=== PATIENT | female | born 1965 | race Caucasian/White ===

== ENCOUNTER 2016-08-06 01:41 | Observation (INO) | payer SELFPAY ==
[2016-08-06] VITALS (12 sets, daily range): BP systolic 130–212; BP diastolic 74–131; PULSE 61–98; RESP 16–24; TEMP 98–98.3; O2SAT 95–100
[~2016-08-06] VITALS: Ht 157.5 cm; Wt 70.0 kg
[2016-08-06] MEDS ORDERED: ASPIRIN 81 MG CHEW TAB PO ONE (02:15)
[2016-08-06] MEDS ORDERED: SODIUM CHLORIDE 0.9% FLUSH 5 ML FLUSH IVF PRN ×2 (02:15→03:15)
[2016-08-06] MEDS ORDERED: NITROGLYCERIN 2% OINT 1 GM PACKET TOP ONE (02:15)
[2016-08-06] MEDS: NITROGLYCERIN 0.4 MG SL 25 TABS/BTL SL SCH ×3 (02:20→03:15)
[2016-08-06] MEDS ORDERED: RESP: ALBUTEROL 2.5 MG/IPRATROPIUM 0.5 MG NEB (SCH) NEB ONE (02:30)
--- NOTE | 2016-08-06 02:30 | PD ---
HPI Chief Complaint: Chest Pain Time Seen by Provider: 02:03 Travel History International Travel<30 days: No Contact w/Intl Traveler<30days: No Traveled to known affect area: No History of Present Illness HPI The patient is a 51-year-old female who presents to the [facility] emergency department with a history of chest tightness, shortness of breath that she reports began this evening. The patient was concerned when she checked her blood pressure and noticed that it was elevated. The patient reports that she does have a history of hypertension and hyperlipidemia. She has not been on medications recently as she is currently uninsured and without a job. She reports that the last time that she had a stress test done was in 2007. She reports that she does not have a personal history of myocardial infarction or congestive heart failure, however she has a family history of her brother at 32 years of age dying of coronary artery disease. The patient reports that she has had a cough and some chest congestion since just after 's. She reports that she recently started smoking again in 2014. She reports that she is smoking less than a pack of cigarettes per day. She denies ever being diagnosed with COPD in the past. The patient on review of systems reports that she has had some urinary frequency this evening. She denies having any dysuria or urinary urgency. The patient denies any recent history of fevers, neck pain, abdominal pain, vomiting, diarrhea, or neurologic symptoms. [facility] Past Medical History Narrative Medical The patient's past medical history is significant for hypertension, hyperlipidemia, history of manic-depressive disorder status post electric shock therapy in 2011, history of kidney stones. Past Surgical History Narrative Surgical The patient's past surgical history is significant for a , hysterectomy , bilateral tubal ligation, right arm surgery, kidney stone removal. Social History Alcohol Use: No Tobacco Use: Yes (less than a pack a day.) Substance Use: Yes (occasional marijuana) Allergies-Medications (Allergen,Severity, Reaction): Coded Allergies: No Known Allergies (Unverified , 08/06/16) Reported Meds & Prescriptions Reported Meds & Active Scripts Active No Active Prescriptions or Reported Medications Review of Systems Except as stated in HPI: all other systems reviewed are Neg General / Constitutional: No: Fever Eyes: No: Visual changes HENT: Positive: Congestion, No: Headaches Cardiovascular: Positive: Chest Pain or Discomfort, Dyspnea on exertion Respiratory: Positive: Cough, Shortness of Breath Gastrointestinal: No: Nausea, Vomiting, Diarrhea, Abdominal Pain Genitourinary: Positive: Frequency, No: Urgency, Dysuria, Flank Pain Musculoskeletal: No: Pain Skin: No Rash Neurologic: No: Weakness, Focal Abnormalities, Change in Mentation, Slurred Speech, Sensory Disturbance Psychiatric: No: Depression Endocrine: No: Polydipsia Hematologic/Lymphatic: No: Easy Bruising Physical Exam Narrative General: The patient is a well-developed well-nourished female in no acute distress. Head and Neck exam: Head is normocephalic atraumatic. Eyes: Pupils are equal round and reactive to light. Nose: Midline septum with pink mucous membranes Mouth: Dentition unremarkable. Moist mucus membranes. Posterior oropharynx is not erythematous. No tonsillar hypertrophy. Uvula midline. Airway patent. Neck: No palpable lymphadenopathy. No nuchal rigidity. No thyromegaly. Cardiovascular: Regular rate and rhythm without murmurs, gallops, or rubs. No pulse deficit to the extremities on simultaneous auscultation and palpation of her radial artery. Lungs: The patient has soft expiratory wheezes audible bilateral lung wong, no rhonchi, no crackles. No accessory muscle use. No conversational dyspnea, no tripoding. Abdomen: Soft, without tenderness to palpation in all 4 quadrants of the abdomen. No guarding, rebound, or rigidity. Normal bowel sounds are audible. Extremities: No clubbing, cyanosis, or edema. 2+ pulses in all 4 extremities. Back: No spinous process tenderness to palpation. No costovertebral angle tenderness to palpation. Neurologic Exam: Cranial nerves 2-12 were intact on exam. Strength is 5/5 in all 4 extremities. No sensory deficits noted. No dysdiadochokinesis. Good finger to nose and Heel to kearns bilaterally. Skin Exam: No rash noted. Intact skin that is warm and dry. Data Data Last Documented VS Vital Signs Date Time Temp Pulse Resp B/P Pulse Ox O2 Delivery O2 Flow Rate FiO2 08/06/16 03:08 82 24 162/94 99 Nasal Cannula 08/06/16 02:50 2 08/06/16 01:43 98.0 Orders Electrocardiogram (08/06/16 02:05) B-Type Natriuretic Peptide (08/06/16 02:05) Ckmb (Isoenzyme) Profile (08/06/16 02:05) Complete Blood Count With Diff (08/06/16 02:05) Comprehensive Metabolic Panel (08/06/16 02:05) Magnesium (Mg) (08/06/16 02:05) Prothrombin Time / Inr (Pt) (08/06/16 02:05) Act Partial Throm Time (Ptt) (08/06/16 02:05) Troponin I (08/06/16 02:05) Lipase (08/06/16 02:05) Chest, Single Ap (08/06/16 02:05) Ecg Monitoring (08/06/16 02:05) Bilateral Bp Monitoring (08/06/16 02:05) Iv Access Insert/Monitor (08/06/16 02:05) Oximetry (08/06/16 02:05) Oxygen Administration (08/06/16 02:05) Aspirin Chew (Aspirin Chew) (08/06/16 02:15) Nitroglycerin 2% Oint (Nitroglycerin 2% (08/06/16 02:15) Sodium Chloride 0.9% Flush (Ns Flush) (08/06/16 02:15) Nitroglycerin Sl (Nitrostat Sl) (08/06/16 02:15) Albuterol-Ipratropium Neb (Duoneb Neb) (08/06/16 02:30) Admit Order (Ed Use Only) (08/06/16 03:10) Place In Observation (08/06/16 03:10) Activity Bed Rest With Brp (08/06/16 03:10) Vital Signs (Adult) Q4H (08/06/16 03:10) Cardiac Rhythm .As Directed (08/06/16 03:10) ^ Notify Dr: Other .PRN (08/06/16 03:10) ^ Notify Dr. Parameters (08/06/16 03:10) Resp Oxygen Nasal Cannula (08/06/16 ) Ckmb (Isoenzyme) Profile (08/06/16 05:05) Ckmb (Isoenzyme) Profile (08/06/16 08:05) Troponin I (08/06/16 05:05) Troponin I (08/06/16 08:05) Electrocardiogram (08/06/16 05:05) Electrocardiogram (08/06/16 08:05) ^ Obtain (08/06/16 03:10) Sodium Chloride 0.9% Flush (Ns Flush) (08/06/16 03:15) Sodium Chloride 0.9% Flush (Ns Flush) (08/06/16 09:00) Acetaminophen (Tylenol) (08/06/16 03:15) Ondansetron Inj (Zofran Inj) (08/06/16 03:15) Lisinopril (Prinivil) (08/06/16 09:00) Nitroglycerin 2% Oint (Nitroglycerin 2% (08/06/16 06:00) Aspirin (Aspirin) (08/06/16 09:00) Labs Laboratory Tests Test 08/06/16 02:05 White Blood Count 9.2 TH/MM3 Red Blood Count 4.65 MIL/MM3 Hemoglobin 14.3 GM/DL Hematocrit 41.4 % Mean Corpuscular Volume 89.0 FL Mean Corpuscular Hemoglobin 30.8 PG Mean Corpuscular Hemoglobin 34.6 % Concent Red Cell Distribution Width 14.9 % Platelet Count 323 TH/MM3 Mean Platelet Volume 8.2 FL Neutrophils (%) (Auto) 60.2 % Lymphocytes (%) (Auto) 32.0 % Monocytes (%) (Auto) 4.5 % Eosinophils (%) (Auto) 2.2 % Basophils (%) (Auto) 1.1 % Neutrophils # (Auto) 5.5 TH/MM3 Lymphocytes # (Auto) 2.9 TH/MM3 Monocytes # (Auto) 0.4 TH/MM3 Eosinophils # (Auto) 0.2 TH/MM3 Basophils # (Auto) 0.1 TH/MM3 CBC Comment DIFF FINAL Differential Comment Prothrombin Time 10.4 SEC Prothromb Time International 0.9 RATIO Ratio Activated Partial 28.5 SEC Thromboplast Time Sodium Level 143 MEQ/L Potassium Level 3.4 MEQ/L Chloride Level 109 MEQ/L Carbon Dioxide Level 24.2 MEQ/L Anion Gap 10 MEQ/L Blood Urea Nitrogen 13 MG/DL Creatinine 1.01 MG/DL Estimat Glomerular Filtration 58 ML/MIN Rate Random Glucose 104 MG/DL Calcium Level 9.2 MG/DL Magnesium Level 2.1 MG/DL Total Bilirubin 0.2 MG/DL Aspartate Amino Transf 14 U/L (AST/SGOT) Alanine Aminotransferase 27 U/L (ALT/SGPT) Alkaline Phosphatase 80 U/L Total Creatine Kinase 69 U/L Troponin I LESS THAN 0.02 NG/ML B-Type Natriuretic Peptide 7 PG/ML Total Protein 7.8 GM/DL Albumin 4.3 GM/DL Lipase 210 U/L MDM Medical Decision Making Medical Screen Exam Complete: Yes Emergency Medical Condition: Yes Interpretation(s) Last Impressions Chest X-Ray 08/06/16 0205 Signed Impressions: Service Date/Time: Saturday, August 06, 2016 02:19 - CONCLUSION: Normal examination for a patient of this age. Roger Mac MD Differential Diagnosis Acute coronary syndrome, versus COPD, versus pneumonia, versus new-onset congestive heart failure, versus aortic dissection Narrative Course During the course of the patients emergency department visit, the patients history, examination, and differential diagnosis were reviewed with the patient. The patient had IV access obtained and blood work sent for analysis. The patient was placed on a monitor and storage bin tender with oximetry and blood pressure monitoring. An EKG was done on arrival. The patient's EKG shows a sinus rhythm heart rate of 65, no acute ST segment elevation is noted. No acute ST segment depression The patient was provided aspirin 162 mg by mouth 1, nitroglycerin sublingual 1 , nitroglycerin 1 inch the chest wall. The patient was given a DuoNeb 1. The patients laboratory studies were reviewed and remarkable for a CBC that is unremarkable. CMP is remarkable for a potassium of 3.4, chloride 109, creatinine 1.01, initial set of cardiac enzymes are negative, lipase 210, BNP 7 , PT PTT unremarkable. Radiology studies were reviewed and remarkable for a chest x-ray that shows no acute abnormality. Given the patient's history of hypertension and hyperlipidemia with recent medication noncompliance, and family history of cardiac disease, the patient will be admitted to the chest pain center for rule out serial cardiac enzyme protocol. The patients results were discussed with the patient, including the plan of care. I explained that further testing and/ or monitoring is indicated based on the patients history, examination, and/ or laboratory findings. Therefore, I recommended admission for additional evaluation. The patient expressed understanding and was agreeable with this plan. The patient was admitted to the hospital in stable condition and sent to a bed under the care of the chest pain center. Diagnosis Primary Impression: Chest pain, rule out acute myocardial infarction Admitting Information Admitting Physician Requests: Observation Scripts No Active Prescriptions or Reported Meds Joaquin,Pretty D. MD Aug 06, 2016 02:29
--- NOTE | 2016-08-06 02:39 | RADRPT ---
EXAM DATE/TIME: 08/06/2016 02:19 [place] COMPARISON: No previous studies available for comparison. INDICATIONS : Shortness of breath. MEDICAL HISTORY : None. SURGICAL HISTORY : None. ENCOUNTER: Initial ACUITY: 1 day PAIN SCORE: 0/10 LOCATION: Bilateral chest FINDINGS: A single view of the chest demonstrates the lungs to be symmetrically aerated without evidence of mas s, infiltrate or effusion. The cardiomediastinal contours are unremarkable. Osseous structures are intact. CONCLUSION: Normal examination for a patient of this age. Roger Mac MD on August 06, 2016 at 2:38 Board Certified Radiologist. This report was verified electronically.
[2016-08-06 02:40] LABS: AUTOMATED NEUTROPHIL # 5.5 TH/MM3 (1.8-7.7); BASOPHIL # 0.1 TH/MM3 (0-0.2); BASOPHIL % 1.1 % (0.0-2.0); EOSINOPHIL # 0.2 TH/MM3 (0-0.4); EOSINOPHIL % 2.2 % (0.0-4.0); HEMATOCRIT 41.4 % (35.0-46.0); HEMO FLAGS DIFF FINAL; LYMPHOCYTE # 2.9 TH/MM3 (1.0-4.8); MEAN CORPUSCULAR HEMOGLOBIN 30.8 PG (27.0-34.0); MEAN CORPUSCULAR HGB CONC 34.6 % (32.0-36.0); MONO % 4.5 % (0.0-8.0); NEUT % 60.2 % (16.0-70.0); PLATELET COUNT 323 TH/MM3 (150-450); RED BLOOD COUNT 4.65 MIL/MM3 (4.00-5.30); RED CELL DISTRIBUTION WIDTH 14.9 % (11.6-17.2); WHITE BLOOD COUNT 9.2 TH/MM3 (4.0-11.0)
[2016-08-06 02:43] LABS: APTT (PATIENT) 28.5 SEC (24.3-30.1); INTERNATIONAL NORMALIZED RATIO 0.9 RATIO; PROTHROMBIN TIME - PATIENT 10.4 SEC (9.8-11.6)
[2016-08-06 02:52] LABS: ALT (GPT) 27 U/L (10-53); ANION GAP 10 MEQ/L (5-15); AST (GOT) 14 U/L (15-37); BICARBONATE 24.2 MEQ/L (21.0-32.0); BLOOD UREA NITROGEN 13 MG/DL (7-18); CHLORIDE 109 MEQ/L (98-107); MAGNESIUM 2.1 MG/DL (1.5-2.5); POTASSIUM 3.4 MEQ/L (3.5-5.1); SODIUM (NA) 143 MEQ/L (136-145)
[2016-08-06 02:57] LABS: ALKALINE PHOSPHATASE 80 U/L (45-117); CREATINE KINASE 69 U/L (26-192); GLOMERULAR FILTRATION RATE 58 ML/MIN (>89); TOTAL BILIRUBIN ADULT 0.2 MG/DL (0.2-1.0)
[2016-08-06] MEDS ORDERED: ONDANSETRON HCL 4 MG/2 ML VIAL IV PRN (03:15)
[2016-08-06] MEDS ORDERED: ACETAMINOPHEN 500 MG CPLT PO PRN (03:15)
[2016-08-06 05:56] LABS: CREATINE KINASE 59 U/L (26-192)
[2016-08-06] MEDS ORDERED: NITROGLYCERIN 2% OINT 1 GM PACKET TOP SCH (06:00)
[2016-08-06] MEDS ORDERED: IBUPROFEN 400 MG TAB PO ONE (08:30)
[2016-08-06] MEDS ORDERED: POTASSIUM CHLORIDE 20 MEQ CONTROLLED RELEASE TAB PO ONE (08:30)
[2016-08-06] MEDS ORDERED: RESP: ALBUTEROL 2.5 MG/3 ML NEB (PRN) NEB (08:30)
[2016-08-06] MEDS ORDERED: LISINOPRIL 10 MG TAB PO SCH (09:00)
[2016-08-06] MEDS ORDERED: ASPIRIN 325 MG TAB PO SCH (09:00)
[2016-08-06] MEDS ORDERED: SODIUM CHLORIDE 0.9% FLUSH 5 ML FLUSH IVF SCH (09:00)
[2016-08-06 09:16] LABS: CREATINE KINASE 55 U/L (26-192)
[2016-08-06] MEDS ORDERED: LISI10TA3 PO (09:38)
[2016-08-06 10:25] LABS: HDL CHOLESTEROL 50.3 MG/DL (40.0-60.0); LDL CHOLESTEROL 177 MG/DL (0-99)
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
--- NOTE | 2016-08-06 12:09 | EKG ---
Date Performed: 08/06/2016 Time Performed: 08:07:31 PTAGE: 51 years EKG: Sinus rhythm MODERATE T-WAVE ABNORMALITY, CONSIDER ANTEROLATERAL ISCHEMIA ABNORMAL ECG NO PREVIOUS TRACING DOCTOR: Reilly Pretty Interpretating Date/Time 08/06/2016 12:08:11
--- NOTE | 2016-08-06 12:09 | EKG ---
Date Performed: 08/06/2016 Time Performed: 04:51:27 PTAGE: 51 years EKG: SINUS BRADYCARDIA NONSPECIFIC T-WAVE ABNORMALITY BORDERLINE ECG NO PREVIOUS TRACING DOCTOR: Reilly Pretty Interpretating Date/Time 08/06/2016 12:08:17
--- NOTE | 2016-08-06 12:11 | EKG ---
Date Performed: 08/06/2016 Time Performed: 01:59:17 PTAGE: 51 years EKG: Sinus rhythm NORMAL ECG INTERPRETATION BASED ON A DEFAULT AGE OF 39 YEARS NO PREVIOUS TRACING DOCTOR: Reilly Pretty Interpretating Date/Time 08/06/2016 12:09:23
--- NOTE | 2016-08-06 12:11 | TR ---
Date Performed: 08/06/2016 Time Performed: 11:05:09 DOCTOR: Reilly Pretty DRUG LIST: CLINICAL HISTORY: REASON FOR TEST: REASON FOR ENDING: OBSERVATION: CONCLUSION: Gonsalo protocol completed. Stopped sec to reaching target heart rate and leg fatigue. Maximum HI=965 Target HR Achieved=89.0% Maximum BP 172/84 Total Exercise Time=4:31. No reprod chest discomfort. No ectopy. Upsloping j point depression inferior leads. Normal bp response. Recovery quii ck and unremarkable. COMMENTS: Patient exercised using the Gonsalo protocol. No electrocardiographic changes were seen to suggest ischemia. Hemodynamic response to exercise was normal. No significant arrhythmia was prese nt.
--- NOTE | 2016-08-06 12:21 | HHI.DCPOC ---
Discharge Care Plan Diagnosis: (1) Atypical chest pain (2) Acute bronchitis Goals to Promote Your Health * To prevent worsening of your condition and complications * To maintain your health at the optimal level Directions to Meet Your Goals Take your medications as prescribed Follow your dietary instruction Follow activity as directed Keep your appointments as scheduled Take your immunizations and boosters as scheduled If your symptoms worsen call your PCP, if no PCP go to Urgent Care Center or Emergency Room Smoking is Dangerous to Your Health. Avoid second hand smoke Call the 24-hour hour crisis hotline for domestic abuse at Marichuy Gates Aug 06, 2016 12:21
[2016-08-06] MEDS ORDERED: ALBU6.7H INH (12:31)
== END 2016-08-06 13:59 | disposition home or self-care (01) ==
LOC: NEPE 01:41 → NEDA 03:13 → NEPHCDU 11:26
PROVIDERS: ADMIT Family Medicine; ATTEND Family Medicine
DX: R07.89 Other chest pain (principal); J20.9 Acute bronchitis, unspecified; R06.02 Shortness of breath; I10 Essential (primary) hypertension; E78.5 Hyperlipidemia, unspecified; E87.6 Hypokalemia; F30.9 Manic episode, unspecified; F17.210 Nicotine dependence, cigarettes, uncomplicated
CPT/HCPCS: 71010; 80053; 80061; 82550; 83690; 83735; 83880; 84484; 85025; 85379; 85610; 85730; 93005; 93017; 94664; 99285; G0378

== ENCOUNTER 2017-02-17 12:32 | Emergency (ER) | payer SELFPAY ==
[~2017-02-17] VITALS: Ht 157.5 cm; Wt 60.0 kg
[~2017-02-17 12:32] MED LIST: ALBU6.7H INH; LISI10TA3 PO
[2017-02-17 12:33] VITALS: BP 203/123; PULSE 109; RESP 17; TEMP 98.1; O2SAT 99
[2017-02-17 13:49] VITALS: BP 222/118
[2017-02-17] MEDS ORDERED: SODIUM CHLORIDE 0.9% FLUSH 10 ML FLUSH IVF PRN (14:30)
[2017-02-17] MEDS ORDERED: SODIUM CHLORID 0.9% 500 ML INJ 500 ML IV ONE (14:30)
[2017-02-17 14:44] LABS: AUTOMATED NEUTROPHIL # 6.4 TH/MM3 (1.8-7.7); BASOPHIL # 0.1 TH/MM3 (0-0.2); BASOPHIL % 0.9 % (0.0-2.0); EOSINOPHIL # 0.1 TH/MM3 (0-0.4); EOSINOPHIL % 0.6 % (0.0-4.0); HEMATOCRIT 46.6 % (35.0-46.0); HEMO FLAGS DIFF FINAL; LYMPH % 33.1 % (9.0-44.0); LYMPHOCYTE # 3.5 TH/MM3 (1.0-4.8); MEAN CELL VOLUME 91.2 FL (80.0-100.0); MEAN CORPUSCULAR HEMOGLOBIN 30.7 PG (27.0-34.0); MEAN CORPUSCULAR HGB CONC 33.6 % (32.0-36.0); MONO % 5.1 % (0.0-8.0); NEUT % 60.3 % (16.0-70.0); PLATELET COUNT 350 TH/MM3 (150-450); RED BLOOD COUNT 5.11 MIL/MM3 (4.00-5.30); RED CELL DISTRIBUTION WIDTH 14.6 % (11.6-17.2); WHITE BLOOD COUNT 10.6 TH/MM3 (4.0-11.0)
--- NOTE | 2017-02-17 14:45 | PD ---
HPI Chief Complaint: Hypertension Time Seen by Provider: 13:52 Travel History International Travel<30 days: No Contact w/Intl Traveler<30days: No Traveled to known affect area: No History of Present Illness HPI Is a 51 year-old woman presents to the emergency department complaining of hypertension anxiety. She states for the past month and a half she hasn't really felt well. Over the past several weeks she starts feeling she has difficulty breathing some tightness in her chest and increasing anxiety symptoms. Review systems is positive for multiple different complaints including headache, feeling tired, some cough, decreased energy. States she was seen in July for similar symptoms where she had a stress test on the reportedly negative. She has had some increased GERD and reflux symptoms as well. No other complaints. History Past Medical History Narrative Medical Hypertension on hyperlipidemia Bipolar disorder/anxiety Positive tobacco use Family history of heart disease : 3 Para: 3 Social History Alcohol Use: No Tobacco Use: Yes (less than a pack a day.) Allergies-Medications (Allergen,Severity, Reaction): Coded Allergies: No Known Allergies (Unverified , 08/06/16) Reported Meds & Prescriptions Reported Meds & Active Scripts Active Ranitidine (Ranitidine HCl) 150 Mg Cap 150 Mg PO BID Review of Systems Except as stated in HPI: all other systems reviewed are Neg Physical Exam Narrative GENERAL: Well-appearing 51 year-old woman, no acute distress. SKIN: Focused skin assessment warm/dry. HEAD: Atraumatic. Normocephalic. CARDIOVASCULAR: Regular rate and rhythm. No murmur appreciated. RESPIRATORY: No accessory muscle use. Clear to auscultation. Breath sounds equal bilaterally. GASTROINTESTINAL: Abdomen flat and soft. Minimal epigastric tenderness. MUSCULOSKELETAL: No obvious deformities. No clubbing. No cyanosis. No edema. NEUROLOGICAL: Awake and alert. No obvious cranial nerve deficits. Motor grossly within normal limits. Normal speech. PSYCHIATRIC: Appropriate mood and affect; insight and judgment normal. Data Data Last Documented VS Vital Signs Date Time Temp Pulse Resp B/P Pulse Ox O2 Delivery O2 Flow Rate FiO2 02/17/17 14:38 97 Room Air 02/17/17 13:49 222/118 02/17/17 12:33 98.1 109 17 Orders Electrocardiogram (02/17/17 14:26) Complete Blood Count With Diff (02/17/17 14:26) Comprehensive Metabolic Panel (02/17/17 14:26) Magnesium (Mg) (02/17/17 14:) Prothrombin Time / Inr (Pt) (02/17/17 14:) Act Partial Throm Time (Ptt) (02/17/17 14:) Troponin I (02/17/17 14:) Lipase (02/17/17 14:) Chest, Single Ap (02/17/17:) Ecg Monitoring (02/17/17:) Iv Access Insert/Monitor (02/17/17:) Oximetry (02/17/17 14:) Oxygen Administration (02/17/17:) Sodium Chloride 0.9% Flush (Ns Flush) (02/17/17 14:) Sodium Chlorid 0.9% 500 Ml Inj (Ns 500 M (02/17/17 14:30) Labs Laboratory Tests Test 02/17/17 14:30 White Blood Count 10.6 TH/MM3 Red Blood Count 5.11 MIL/MM3 Hemoglobin 15.7 GM/DL Hematocrit 46.6 % Mean Corpuscular Volume 91.2 FL Mean Corpuscular Hemoglobin 30.7 PG Mean Corpuscular Hemoglobin 33.6 % Concent Red Cell Distribution Width 14.6 % Platelet Count 350 TH/MM3 Mean Platelet Volume 7.9 FL Neutrophils (%) (Auto) 60.3 % Lymphocytes (%) (Auto) 33.1 % Monocytes (%) (Auto) 5.1 % Eosinophils (%) (Auto) 0.6 % Basophils (%) (Auto) 0.9 % Neutrophils # (Auto) 6.4 TH/MM3 Lymphocytes # (Auto) 3.5 TH/MM3 Monocytes # (Auto) 0.5 TH/MM3 Eosinophils # (Auto) 0.1 TH/MM3 Basophils # (Auto) 0.1 TH/MM3 CBC Comment DIFF FINAL Differential Comment Prothrombin Time 10.7 SEC Prothromb Time International 1.0 RATIO Ratio Activated Partial 28.4 SEC Thromboplast Time Sodium Level 140 MEQ/L Potassium Level 3.8 MEQ/L Chloride Level 108 MEQ/L Carbon Dioxide Level 24.9 MEQ/L Anion Gap 7 MEQ/L Blood Urea Nitrogen 10 MG/DL Creatinine 0.95 MG/DL Estimat Glomerular Filtration 62 ML/MIN Rate Random Glucose 93 MG/DL Calcium Level 9.9 MG/DL Magnesium Level 2.4 MG/DL Total Bilirubin 0.3 MG/DL Aspartate Amino Transf 15 U/L (AST/SGOT) Alanine Aminotransferase 28 U/L (ALT/SGPT) Alkaline Phosphatase 82 U/L Troponin I LESS THAN 0.02 NG/ML Total Protein 8.1 GM/DL Albumin 4.3 GM/DL Lipase 304 U/L MDM Medical Decision Making Medical Screen Exam Complete: Yes Emergency Medical Condition: Yes Interpretation(s) My review of EKG: Normal sinus rhythm at a rate of 60, normal axis, normal intervals, no acute ischemia. LABS: CBC remarkable for mildly elevated hemoglobin. PE is unremarkable. Troponin is negative. Lipase is normal. Coags are unremarkable. Chest x-ray negative Differential Diagnosis Gastritis, pancreatitis, hepatobiliary disease, cholecystitis, ACS, other Narrative Course Medical decision-making 51 year-old woman presents with multiple complaints including some chest tightness, lethargy, cough, headache, likely related to noncardiac etiologies. She was seen here in July for similar symptoms a negative workup and a negative stress. She may have increasing gastritis symptoms associated with worsening anxiety. We'll check basic labs, x-ray, likely discharge for outpatient follow-up. Diagnosis Primary Impression: Gastritis Additional Impression: Anxiety Additional Instructions: Take ranitidine as prescribed. Up with her primary doctor in the next several days. Return to the emergency department for any new or worsening symptoms. Med/Other Pt SpecificInfo: Prescription(s) given Scripts Ranitidine 150 Mg Uxy387 Mg PO BID #60 CAP Prov:Prince Rivera MD 02/17/17 Disposition: 01 DISCHARGE HOME Condition: Stable Prince Rivera MD Feb 17, 2017 14:45 Prince Rivera MD Feb 17, 2017 14:45
[2017-02-17 14:49] LABS: APTT (PATIENT) 28.4 SEC (24.3-30.1); PROTHROMBIN TIME - PATIENT 10.7 SEC (9.8-11.6)
[2017-02-17 15:03] LABS: ALT (GPT) 28 U/L (10-53); ANION GAP 7 MEQ/L (5-15); AST (GOT) 15 U/L (15-37); BICARBONATE 24.9 MEQ/L (21.0-32.0); BLOOD UREA NITROGEN 10 MG/DL (7-18); CHLORIDE 108 MEQ/L (98-107); GLOMERULAR FILTRATION RATE 62 ML/MIN (>89); MAGNESIUM 2.4 MG/DL (1.5-2.5); POTASSIUM 3.8 MEQ/L (3.5-5.1); SODIUM (NA) 140 MEQ/L (136-145)
--- NOTE | 2017-02-17 15:04 | RADRPT ---
EXAM DATE/TIME: 02/17/2017 14:26 [facility] COMPARISON: CHEST SINGLE AP, August 06, 2016, 2:19. INDICATIONS : Cough, chest pain, light headed, and shortness of breath for one week with dizziness for 2 months. MEDICAL HISTORY : Hypertension. Chronic obstructive pulmonary disease. SURGICAL HISTORY : Breast augmentation. Breast aumnetation removal 1998. ENCOUNTER: Initial ACUITY: 2 months PAIN SCORE: 5/10 LOCATION: Chest, midline. FINDINGS: A single view of the chest demonstrates the lungs to be symmetrically aerated without evidence of mas s, infiltrate or effusion. The cardiomediastinal contours are unremarkable. Osseous structures are intact. CONCLUSION: No evidence of acute cardiopulmonary disease. Sebastian Canseco MD on February 17, 2017 at 15:02 Board Certified Radiologist. This report was verified electronically.
[2017-02-17 15:06] LABS: ALKALINE PHOSPHATASE 82 U/L (45-117); TOTAL BILIRUBIN ADULT 0.3 MG/DL (0.2-1.0)
[2017-02-17] MEDS ORDERED: RANI150C PO (15:18)
--- NOTE | 2017-02-18 16:27 | EKG ---
Date Performed: 02/17/2017 Time Performed: 13:59:42 PTAGE: 51 years EKG: Sinus rhythm NORMAL ECG PREVIOUS TRACING 08/06/2016 08.07.31 Since previous tracing, no significant change noted DOCTOR: John Villalobos Interpretating Date/Time 02/18/2017 16:25:28
== END 2017-02-17 16:02 | disposition home or self-care (01) ==
LOC: NEPD 12:32
DX: I10 Essential (primary) hypertension (principal); K29.70 Gastritis, unspecified, without bleeding; F41.9 Anxiety disorder, unspecified; F17.210 Nicotine dependence, cigarettes, uncomplicated; E78.5 Hyperlipidemia, unspecified
CPT/HCPCS: 71010; 80053; 83690; 83735; 84484; 85025; 85610; 85730; 93005; 96360; 99285; J7040